=== PATIENT | male | born 1990 | race Caucasian/White ===

== ENCOUNTER 2018-10-31 04:06 | Emergency (ER) | payer SELFPAY ==
[~2018-10-31 04:06] MED LIST: AMOXICILLIN500 MG PO; AUGMENTIN875TAB PO; CEPHALEXIN500 MG OR; DEPAKOTE ER250 MG PO; DEPAKOTE500 MG OR; FLEXERIL OR; FLOXIN OTIC0.3 % OT; KEFLEX500 MG; KEFLEX500 MG PO; LORTAB 10 PO; LORTAB 1010 MG PO; LORTAB 5/3255 MG PO; LORTAB5 PO; NAPROSYN500 MG OR; PENICILLN VK500 M1 OR; PENICILLN VK500 M1 PO; PERCOCET 5/325M1 TAB; PERCOCET 5/325M1 TAB PO; RISPERDAL0.5 MG PO; TYLENOL # 31 TA1 PO; ZPAK PO
== END 2018-10-31 04:35 | disposition left against medical advice (07) | DRG 951 ==
LOC: ED 04:06 → LWOBS 04:35
DX: Z91.19 Patient's noncompliance with other medical treatment and regimen (principal)

== ENCOUNTER 2020-09-09 16:36 | Emergency (ER) | payer SELFPAY ==
[~2020-09-09] VITALS: Ht 180.3 cm; Wt 102.1 kg
[2020-09-09] MEDS ORDERED: IBUPROFEN600 MG PO (18:54)
[2020-09-09] MEDS ORDERED: TRAMADOL HYDROC50 M1 PO (18:54)
[2020-09-09] MEDS ORDERED: CYCLOBENZAPRINE10 MG PO (18:54)
[2020-09-09 19:01] VITALS: BP 129/69
== END 2020-09-09 19:06 | disposition home or self-care (01) | DRG 552 ==
LOC: ED 16:36
DX: M54.5 Low back pain (principal); F17.200 Nicotine dependence, unspecified, uncomplicated; X50.0XXA Overexertion from strenuous movement or load, initial encounter

== ENCOUNTER 2022-03-14 23:29 | Emergency (ER) | payer SELFPAY ==
[~2022-03-14] VITALS: Ht 180.3 cm; Wt 100.0 kg
[~2022-03-14 23:29] MED LIST changes: +CYCLOBENZAPRINE10 MG PO; +IBUPROFEN600 MG PO; +TRAMADOL HYDROC50 M1 PO
[2022-03-14 23:34] VITALS: BP 123/80
[2022-03-15 00:01] VITALS: BP 123/80
== END 2022-03-15 00:01 | disposition home or self-care (01) | DRG 156 ==
LOC: ED 23:29
PROC: 09C3XZZ Extirpation of Matter from Right External Auditory Canal, External Approach (ICD-10-PCS; principal; 2022-03-14)
DX: T16.1XXA Foreign body in right ear, initial encounter (principal); F17.200 Nicotine dependence, unspecified, uncomplicated; X58.XXXA Exposure to other specified factors, initial encounter

== ENCOUNTER 2022-05-17 15:17 | Emergency (ER) | payer SELFPAY ==
[~2022-05-17] VITALS: Ht 180.3 cm; Wt 106.8 kg
[2022-05-17 17:00] VITALS: BP 117/75
[2022-05-17 17:30] LABS: HEMATOCRIT 44.9 % (39.0-50.0); HEMOGLOBIN 15.1 g/dl (14.0-18.0); IMMATURE GRANULOCYTES 0.2 % (0.0-5.0); MEAN CELL VOLUME 86.8 fL CALC (80.0-100.0); MEAN CORPUSCULAR HGB 29.2 pG CALC (26.0-32.0); MEAN CORPUSCULAR HGB CONC 33.6 g/dL CAL (32.0-36.0); NEUT# 6.45 thou/uL (1.82-7.42); RED BLOOD COUNT 5.17 mill/uL (4.70-6.10); RED CELL DISTRI WIDTH 13.8 % (11.5-15.5)
[2022-05-17 17:44] LABS: ALBUMIN 4.6 g/dL (3.2-5.0); ALKALINE PHOSPHATASE 66 u/l (38-126); ANION GAP 14 (6-22 (CALC)); BUN 19 mg/dL (9-20); BUN/CREATININE RATIO 17 (12-20 (CALC)); CARBON DIOXIDE 22 mmol/l (22-30); CHLORIDE 106 mmol/l (95-108); CPK 540 u/l (52-200); CREATININE 1.1 mg/dL (0.7-1.3); GFR FOR AFR.AMER. > 60 ML/MIN (>=60 (CALC)); GFR OTHER RACES > 60 ML/MIN (>=60 (CALC)); SGOT/AST 36 u/l (17-59); SODIUM 137 mmol/l (137-146); TOTAL PROTEIN 7.6 g/dL (6.3-8.2)
[2022-05-17 17:45] LABS: BILIRUBIN, TOTAL 0.2 mg/dL (0.0-1.4)
[2022-05-17 17:47] VITALS: BP 121/74
[2022-05-17 18:00] VITALS: BP 123/75
[2022-05-17] MEDS ORDERED: FLEXERIL5 M1 PO (18:17)
[2022-05-17 18:23] VITALS: BP 123/75
== END 2022-05-17 18:30 | disposition home or self-care (01) | DRG 558 ==
LOC: ED 15:17
DX: M62.82 Rhabdomyolysis (principal); F17.210 Nicotine dependence, cigarettes, uncomplicated

== ENCOUNTER 2024-06-30 06:23 | Emergency (ER) | payer SELFPAY ==
[~2024-06-30] VITALS: Ht 180.3 cm; Wt 111.0 kg
[2024-06-30] VITALS (9 sets, daily range): BP systolic 118–143; BP diastolic 69–90
[~2024-06-30 06:23] MED LIST changes: +DICYCLOMINE HCL20 MG PO; +FLEXERIL5 M1 PO; +METRONIDAZOLE500 MG PO; +OMNI-PAC300 MG PO; +ONDANSETRON4 MG PO
[2024-06-30] MEDS ORDERED: TAMSULOSIN HCL 0.4 MG CAP PO STA (06:33)
[2024-06-30] MEDS ORDERED: MORPHINE SULFATE 4 MG/ML VIAL IV STA (06:33)
[2024-06-30] MEDS ORDERED: ONDANSETRON HCl 4 MG/2 ML SDV IV STA (06:33)
[2024-06-30] MEDS ORDERED: KETOROLAC TROMETHAMINE 30 MG/ML SDV IV STA (06:33)
[2024-06-30 06:52] LABS: URINE BILIRUBIN - DIPSTICK Negative (NEGATIVE); URINE BLOOD DIPSTICK Negative (NEGATIVE); URINE GLUCOSE - DIPSTICK Negative (NEGATIVE); URINE KETONE Negative (NEGATIVE); URINE LEUK ESTERASE Negative (NEGATIVE); URINE NITRITE - DIPSTICK Negative (Negative); URINE PROTEIN - DIPSTICK Negative (NEG-TRACE); URINE SPECIFIC GRAVITY >=1.030; URINE UROBILINOGEN - DIPSTICK 0.2 E.U./dL (0.2)
[2024-06-30 06:55] LABS: URINE COLOR Yellow
[2024-06-30 07:00] LABS: BASO% 1.6 % (0-3); EOS% 6.6 % (0-8); HEMATOCRIT 46.8 % (39.0-50.0); HEMOGLOBIN 16.3 g/dl (14.0-18.0); IMMATURE GRANULOCYTES 0.1 % (0.0-5.0); LYMPH% 30.8 % (15-41); MEAN CELL VOLUME 86.2 fL CALC (80.0-100.0); MEAN CORPUSCULAR HGB CONC 34.8 g/dL CAL (32.0-36.0); MONO% 11.3 % (2-13); NEUT# 3.43 thou/uL (1.82-7.42); NEUT% 49.6 % (42-76); RED BLOOD COUNT 5.43 mill/uL (4.70-6.10); RED CELL DISTRI WIDTH 13.5 % (11.5-15.5)
[2024-06-30 07:22] LABS: ALBUMIN 4.8 g/dL (3.2-5.0); BILIRUBIN, TOTAL 0.6 mg/dL (0.2-1.3); CREATININE 1.1 mg/dL (0.7-1.3); POTASSIUM 4.6 mmol/l (3.5-5.1); TOTAL PROTEIN 8.2 g/dL (6.3-8.2)
[2024-06-30] MEDS ORDERED: CELEBREX200 MG PO (10:08)
[2024-06-30] MEDS ORDERED: FLEXERIL5 M1 PO (10:08)
== END 2024-06-30 10:20 | disposition home or self-care (01) | DRG 563 ==
LOC: ED 06:23
PROVIDERS: Emergency Medicine
DX: S39.011A Strain of muscle, fascia and tendon of abdomen, initial encounter (principal); R05.9 Cough, unspecified; F17.200 Nicotine dependence, unspecified, uncomplicated; X50.0XXA Overexertion from strenuous movement or load, initial encounter

== ENCOUNTER 2024-11-26 09:24 | Emergency (ER) | payer SELFPAY ==
[2024-11-26] VITALS (8 sets, daily range): BP systolic 98–149; BP diastolic 78–88
[~2024-11-26] VITALS: Ht 180.3 cm; Wt 109.0 kg
[~2024-11-26 09:24] MED LIST changes: +CELEBREX200 MG PO
[2024-11-26] MEDS ORDERED: KETOROLAC TROMETHAMINE 30 MG/ML SDV IM ONE (09:50)
[2024-11-26] MEDS ORDERED: NAPROXEN500 MG PO (11:34)
== END 2024-11-26 11:57 | disposition home or self-care (01) | DRG 605 ==
LOC: ED 09:24
DX: S70.01XA Contusion of right hip, initial encounter (principal); S30.0XXA Contusion of lower back and pelvis, initial encounter; F17.210 Nicotine dependence, cigarettes, uncomplicated; W17.89XA Other fall from one level to another, initial encounter; Y93.44 Activity, trampolining

== ENCOUNTER 2024-12-05 09:39 | Emergency (ER) | payer SELFPAY ==
[~2024-12-05] VITALS: Ht 180.3 cm; Wt 115.0 kg
[~2024-12-05 09:39] MED LIST changes: +NAPROXEN500 MG PO
[2024-12-05] MEDS ORDERED: methylPREDNISolone SODIUM SUCC 125 MG/2 ML SDV IM ONE (11:20)
[2024-12-05] MEDS ORDERED: IPRATROPIUM-Albuterol 0.5MG-2.5MG/3 ML NEB ONE (11:20)
[2024-12-05] MEDS ORDERED: BENZONATATE200 MG PO (11:22)
[2024-12-05] MEDS ORDERED: PREDNISONE50 MG PO (11:22)
[2024-12-05] MEDS ORDERED: VENTOLIN HFA108 MCG IN (11:22)
[2024-12-05] MEDS ORDERED: ZITHROMAX250 MG PO (11:22)
[2024-12-05 11:46] VITALS: BP 140/88
== END 2024-12-05 11:53 | disposition home or self-care (01) | DRG 203 ==
LOC: ED 09:39
DX: J20.9 Acute bronchitis, unspecified (principal); F17.200 Nicotine dependence, unspecified, uncomplicated; Z20.822 Contact with and (suspected) exposure to COVID-19